=== PATIENT | female | born 1935 | race Caucasian/White ===

== ENCOUNTER 2017-02-15 14:02 | Inpatient (IN) | payer OTHER, MEDICAID ==
[~2017-02-15] VITALS: Ht 162.6 cm; Wt 53.1 kg
[~2017-02-15 14:02] MED LIST: CLONIDINE HCL0.2 MG PO; FELODIPINE5 M1 PO; HYDRALAZINE HYD50 MG PO; LAC PO; LASIX40 MG PO; LEVAQUIN250 MG PO; LEVOTHYROXIN0.075 M2 PO; LOTENSIN40 MG PO; METOPROLOL SUCC50 M2 PO; PROVENTIL0.09 MG/A1 INH
--- NOTE | 2017-02-15 14:29 | NUR ---
PT BIB [facility] FOR MECHANICAL FALL AT HOME, PT REPORTS COMING INSIDE HOME FROM OUTSIDE AND MISSING A STEP WHEN ENTERING. NO TKO. PT C/O R HIP PAIN NO OBVIOUS DEFORMITY NOTED IT TO R HAND ESTABLISHED MEDIA SERVICES SPECIALIST TO ED 20G PATENT. MSE COMPLETED BY DR WHITESIDE.
--- NOTE | 2017-02-15 14:33 | NUR ---
LAB AT BEDSIDE.
[2017-02-15 14:50] LABS: BASOPHIL % 0.3 % (0-2); PLATELET COUNT 298 x10^3mcL (130-400); RED CELL DISTRIBUTION WIDTH 14.1 % (11.5-14.5)
--- NOTE | 2017-02-15 14:51 | NUR ---
PTS PANTS CUT OK PER PT IN ORDER TO HAVE XRAYS DONE. PT MEDICATED DUE TO PAIN 04/25. PT IN NO DISTRESS WILL CONTINUE TO MONITOR
[2017-02-15 14:56] LABS: CALCIUM 8.6 mg/dL (8.5-10.1); CARBON DIOXIDE 20.7 mmol/L (21-32); CHLORIDE SERUM 106 mmol/L (98-107); CREATININE SERUM 1.7 mg/dL (0.6-1.0); GLUCOSE SERUM 118 mg/dL (74-106); POTASSIUM SERUM 4.1 mmol/L (3.5-5.1); SODIUM SERUM 138 mmol/L (136-145)
--- NOTE | 2017-02-15 15:00 | NUR ---
PT TO XRAY VIA [facility]
[2017-02-15 15:09] LABS: ALKALINE PHOSPHATASE 66 U/L (46-116); ALT/SGPT 26 U/L (14-59); AST/SGOT 29 U/L (15-37); BILIRUBIN TOTAL 0.2 mg/dL (0.20-1.00); TOTAL PROTEIN, SERUM 6.7 g/dL (6.4-8.2)
[2017-02-15 15:17] LABS: ALBUMIN 3.3 g/dL (3.4-5.0)
--- NOTE | 2017-02-15 16:04 | NUR ---
pt with urge to void, bed neal provided. family at bedside
--- NOTE | 2017-02-15 16:28 | NUR ---
PT TO CT VIA [facility]
[2017-02-15 16:32] LABS: MAGNESIUM 1.7 mg/dL (1.8-2.4); PHOSPHOROUS 4.2 mg/dL (2.5-4.9)
--- NOTE | 2017-02-15 16:34 | NUR ---
REPORT GIVEN TO ROSS RODRIGUEZ RESUMING CARE OF PT
[2017-02-15 16:37] LABS: T3 TOTAL 0.74 ng/mL
[2017-02-15 16:41] LABS: CHOLESTEROL/HDL RATIO 3.2
[2017-02-15 16:42] LABS: FREE T4 1.08 ng/dL (0.76-1.46); FREE THYROXINE INDEX 3.3 ug/dL (1.4-4.5); T4(THYROXINE) 8.4 ug/dL (4.7-13.3)
--- NOTE | 2017-02-15 17:00 | NUR ---
PT TRANSPORTED TO TELE FLOOR VIA GURNEY BY KEEGAN RODRIGUEZ AND EMT ON PORTABLE CM NO DISTRESS. ROSS RODRIGUEZ RESUMING CARE OF PT
--- NOTE | 2017-02-15 17:20 | NUR ---
RECEIVED PT FROM ED VIA [facility], CAME IN DUE TO S/P FALL AT HOME. AAOX4. NO SOB NOTED. DENIES CHEST PAIN, NSR ON THE MONITOR. DENIES ABDOMINAL DISCOMFORT. W/ RLE SHORTENING. C/O 10/10 RIGHT HIP PAIN WORSE ON MOVEMENT. SIDE RAILS UPX2. CALL LIGHT ON REACH. ENDORSED
[2017-02-15 17:23] VITALS: BP 183/79
[2017-02-15 17:30] VITALS: Ht 162.6 cm; Wt 53.1 kg
--- NOTE | 2017-02-15 18:30 | NUR ---
PT IS CURRENTLY LAYING IN BED. GIVEN 1MG DILAUDID IVP PRN FOR PAIN 05/26. FAMILY AT BEDSIDE. HUMBERTO LIGHT WITHIN REACH. BED IN LOWEST POSITION. ENCOURAGED TO CALL FOR ASSISTANCE WHEN NEEDED. WILL CONTINUE TO MONITOR
[2017-02-15 19:40] VITALS: BP 149/62
--- NOTE | 2017-02-15 19:40 | NUR ---
PT RESTING IN BED. ALERT AND AWAKE. VERBAL WITH CLEAR SPEECH. AOX4. NO S/S OF RESPIRATORY DISTRESS NOTED. LUNGS CLEAR BILATERALLY, DIMINISHED TO BASES. ABD SOFT AND FLAT. BOWEL SOUNDS ACTIVE. IV TO LEFT HAND PATENT AND INTACT. IV INFUSING WELL. NO S/S OF INFECTION NOTED. SKIN WARM AND DRY. BUCKS TRACTION IN PLACE TO RLE WITH 5 LBS. NO EDEMA NOTED. PULSES PALPABLE. DENIES ANY PAIN AT THIS TIME. NO S/S OF DISTRESS NOTED. NO FACIAL GRIMACING NOTED. SIDE RAILS UP. CALL LIGHT WITHIN REACH. WILL CONTINUE TO MONITOR.
[2017-02-15 22:23] VITALS: BP 170/70
--- NOTE | 2017-02-16 00:13 | NUR ---
PT RESTING IN BED WITH EYES CLOSED. BREATHING EQUAL AND UNLABORED. NO S/S OF RESPIRATORY DISTRESS NOTED. IV PATENT AND INFUSING WELL. NO S/S OF INFECTION NOTED. BUCKS TRACTION REMAINS IN PLACE TO RLE. NO S/S OF DISTRESS OR DISCOMFORT NOTED. RESTING WITH RELAXED FACIAL FEATURES. CALL LIGHT WITHIN REACH. WILL CONTINUE TO MONITOR.
--- NOTE | 2017-02-16 01:15 | NUR ---
PAGEGATED DR. BUTTS REGARDING PT'S LOW MAG LEVEL 1.7. AWAITING NEW ORDERS.
[2017-02-16 02:08] LABS: UA SPECIFIC GRAVITY 1.025 (1.005-1.035); microscopic required? YES; urine erythrocyte 1+ (NEGATIVE)
[2017-02-16 06:06] VITALS: BP 103/55
--- NOTE | 2017-02-16 06:35 | NUR ---
PT SLEPT WELL THROUGH THE NIGHT. EASILY AROUSED WHEN NAME CALLED. ALERT AND AWAKE. BREATHING EQUAL AND UNLABORED. RECEIVED ROUTINE MEDICATIONS AND SWALLOWED WITHOUT DIFFICULY. IV PATENT AND INTACT. IV ROCEPHIN INFUSING WELL. PT C/O PAIN ONLY WITH MOVEMENT. REFUSES ANY PAIN MEDICATION AT THIS TIME. NO S/S OF PAIN NOTED. BUCKS TRACTIONS REMAINS IN PLACE TO RLE. NO FACIAL GRIMACING NOTED. RESTING COMFORTABLY WITH RELAXED FACIAL FEATURES. CALL LIGHT WITHIN REACH. WILL CONTINUE TO MONITOR.
[2017-02-16 06:38] LABS: BASOPHIL % 0.4 % (0-2); PLATELET COUNT 274 x10^3mcL (130-400)
[2017-02-16 06:52] LABS: CALCIUM 8.6 mg/dL (8.5-10.1); CARBON DIOXIDE 21.7 mmol/L (21-32); CHLORIDE SERUM 110 mmol/L (98-107); CREATININE SERUM 1.7 mg/dL (0.6-1.0); GLUCOSE SERUM 100 mg/dL (74-106); MAGNESIUM 2.9 mg/dL (1.8-2.4); PHOSPHOROUS 4.4 mg/dL (2.5-4.9); POTASSIUM SERUM 4.7 mmol/L (3.5-5.1); SODIUM SERUM 141 mmol/L (136-145)
--- NOTE | 2017-02-16 07:30 | NUR ---
RECEIVED Pt. AAOX4. RESPIRATIONS EVEN AND UNLABORED. Pt. REPORTED PAIN AT RLE 6/10 AT THIS TIME BUT "PAIN IS STARTING TO GO UP" PER Pt. IVF RUNNING TO IV AT LEFT HAND PATENT AND INTACT. TELE [address] NSR HR 74. RLE ON 5 LB [address]AN'S TRACTION IN PLACE. BED LOW/LOCKED. CALL LIGHT IN REACH.
--- NOTE | 2017-02-16 07:39 | NUR ---
Pt. CONTINUE TO C/O RLE PAIN 8/10 SCALE, DILAUDID GIVEN WILL CONTINUE TO MONITOR.
--- NOTE | 2017-02-16 09:30 | NUR ---
Pt. VERBALIZED SOME RELIEF POST DILAUDID.
--- NOTE | 2017-02-16 10:09 | NUR ---
Pt. C/O RLE PAIN 6/10 SCALE, TRAMADOL GIVEN WILL CONTINUE TO MONITOR.
[2017-02-16 10:22] VITALS: BP 157/68
--- NOTE | 2017-02-16 10:30 | NUR ---
Pt. REPORTED DR. DENNISON EXPLAINED OPEN TREATMENT OF RIGHT HIP FRACTURE AND WITNESSED Pt. SIGN CONSENT.
--- NOTE | 2017-02-16 12:00 | NUR ---
Pt. VERBALIZED SOME RELIEF POST TRAMADOL.
[2017-02-16 13:00] VITALS: BP 187/76
--- NOTE | 2017-02-16 13:11 | NUR ---
Pt. C/O RLE PAIN 8/10 SCALE, DILAUDID IVP GIVEN WILL CONTINUE TO MONITOR.
--- NOTE | 2017-02-16 14:30 | NUR ---
Pt. C/O PAIN AT LEFT HAND IV SITE, SWELLING AND REDNESS NOTED. NEW IV LINE STARTED AT RIGHT FOREARM 22 G WITH GOOD BLOOD RETURN AND TOLERATED WELL. RESUMED NS 100 ML/HR.
--- NOTE | 2017-02-16 15:00 | NUR ---
Pt. EYES CLOSED APPEARS ASLEEP, NO SIGNS OF PAIN/DISCOMFORT AT THIS TIME.
--- NOTE | 2017-02-16 16:23 | NUR ---
Pt. POST USING BEDPAN C/O RLE AND BACK PAIN 8/10 SCALE, DILAUDID IVP GIVEN WILL CONTINUE TO MONITOR.
--- NOTE | 2017-02-16 18:00 | NUR ---
Pt. BP AT 185/77 MAP 144 HR 81, Pt. ASYMPTOMATIC, DENIES HEADACHE OR ANY PAIN/DISCOMFORT AT THIS TIME. DR. PITT NOTIFIED AWAITING ORDERS.
[2017-02-16 18:25] VITALS: BP 185/77
--- NOTE | 2017-02-16 18:47 | NUR ---
IV RATE CHANGED TO 40 ML/HR.
--- NOTE | 2017-02-16 19:00 | NUR ---
Pt. AAOX4. RESPIRATIONS EVEN AND UNLABORED. DENIES PAIN/DISCOMFORT AT THIS TIME. NO DISTRESS NOTED. IVF RUNNING TO IV AT RIGHT FOREARM PATENT AND INTACT. TELE IN PLACE. RLE WITH PAGAN'S TRACTION [address] BED LOW/LOCKED. CALL LIGHT IN REACH.
--- NOTE | 2017-02-16 20:11 | NUR ---
AAO X 4. SPEECH CLEAR AND APPROPRIATE. BREATHING EVEN AND UNLABORED ON ROOM AIR. LUNG SOUNDS CLEAR. SINUS RHYTHM ON TELE. IVF OF NS AT 40ML/HR. BUCKS TRACTION 5LBS TO RIGHT LEG, CAPILLARY REFILL < 3SECS.
[2017-02-16 21:22] VITALS: BP 178/80
[2017-02-16 23:30] VITALS: BP 171/81
--- NOTE | 2017-02-16 23:36 | NUR ---
bp 171/81, pr 87. paged dr. keith
--- NOTE | 2017-02-17 00:02 | NUR ---
DR. PAUL AWARE OF ELEVATED BP.
[2017-02-17 05:07] VITALS: BP 140/60
--- NOTE | 2017-02-17 05:21 | NUR ---
NURSING CO-SIGN THE DOCUMENTATION ENTERED BY THE STUDENT NURSE HAS BEEN REVIEWED. REVIEWED/CO-SIGNED BY: Corey Silver DOCUMENTATION DONE BY: AARTI VILLAREAL
--- NOTE | 2017-02-17 06:51 | NUR ---
Resting comfortably with eyes closed. No complaints of pain.Breaths are even and unlabored. call light within reach. Needs anticipated and met. Will continue to monitor.
--- NOTE | 2017-02-17 07:22 | NUR ---
endorsed to nurse banks. breathing even and unlabored.
--- NOTE | 2017-02-17 07:28 | NUR ---
RECEIVED Pt. AAOX4. RESPIRATIONS EVEN AND UNLABORED. DENIES PAIN/DISCOMFORT AT THIS TIME. NO DISTRESS NOTED. IVF RUNNING TO IV AT RIGHT FOREARM PATENT AND INTACT. TELE IN PLACE NSR HR 68. PAGAN'S TRACTION TO RLE. RLE WITH BRISK CAP REFILL NOTED. BED LOW/LOCKED. CALL LIGHT IN REACH. WILL CONTINUE TO MONITOR.
--- NOTE | 2017-02-17 08:30 | NUR ---
MADE ROUNDS WITH DR. PADILLA AND MEDICINE TEAM, SCHEDULED SURGERY TOMMORROW AND Pt. AGREED WITH PLAN OF CARE.
--- NOTE | 2017-02-17 08:41 | NUR ---
Pt. C/O RLE PAIN 8/10 SCALE PAIN, DILAUDID IVP GIVEN WILL CONTINUE TO MONITOR.
[2017-02-17 09:06] LABS: CARBON DIOXIDE 21.1 mmol/L (21-32); CHLORIDE SERUM 107 mmol/L (98-107); CREATININE SERUM 1.6 mg/dL (0.6-1.0); GLUCOSE SERUM 107 mg/dL (74-106); POTASSIUM SERUM 4.5 mmol/L (3.5-5.1); SODIUM SERUM 136 mmol/L (136-145)
[2017-02-17 09:42] VITALS: BP 134/56
--- NOTE | 2017-02-17 10:18 | NUR ---
Pt. APPEARS TO BE SLEEPING, NO SIGNS OF PAIN/DISCOMFORT AT THIS TIME.
[2017-02-17 13:18] VITALS: BP 149/60
--- NOTE | 2017-02-17 14:20 | NUR ---
Pt. JUST FINISHED USING BEDPAN AND WAS CLEANED. Pt. STILL C/O RLE PAIN 04/25 POST ULTRAM. DILAUDID IVP GIVEN. WILL CONTINUE TO MONITOR.
[2017-02-17 14:57] VITALS: BP 138/59
--- NOTE | 2017-02-17 15:22 | NUR ---
RECHECKED BP 138/59 HR 71, PER DR. PITT HOLD X 1 CLONIDINE ORDER.
--- NOTE | 2017-02-17 16:20 | NUR ---
Pt. VERBALIZED RELIEF POST DILAUDID.
[2017-02-17 18:28] VITALS: BP 160/68
--- NOTE | 2017-02-17 19:24 | NUR ---
Pt. AAOX4. RESPIRATIONS EVEN AND UNLABORED MEDICATED WITH DILAUDID IVP FOR RLE PAIN. NO DISTRESS AT THIS TIME. TELE IN PLACE. IVF RUNNING TO IV AT RIGHT FOREARM PATENT AND INTACT. RLE ON 5LB PAGAN'S TRACTION BRISK CAP REFILL NOTED, WIGGLES RIGHT TOES. BED LOW/LOCKED. CALL LIGHT IN REACH.
[2017-02-17 21:41] VITALS: BP 126/78; BP 145/63
--- NOTE | 2017-02-17 22:19 | NUR ---
PT IS RESTING WITH EYES CLOSED AND C/O PAIN IN HER HIP OF 6/10. WILL MEDICATE PRN PER EMR.
--- NOTE | 2017-02-18 01:20 | NUR ---
PT RESTING AT THIS TIME IN NO ACUTE DISTRESS. RR EVEN AND UNLABORED. IV PATENT AND INFUSING WELL WITH NO S/S OF INFILTRATION. CALL LIGHT WITHIN REACH, BED IN LOW POSITION. WILL CONTINUE TO MONITOR.
--- NOTE | 2017-02-18 02:26 | NUR ---
EYES ARE CLOSED AND SNORING. PT IS RELAXED AND CONFORTABLE. NO C/O PAIN. CALL LIGHT WITHIN REACH. WILL CONTINUE TO MONITOR.
[2017-02-18 05:33] VITALS: BP 126/52
[2017-02-18 07:13] LABS: BASOPHIL % 0.4 % (0-2); PLATELET COUNT 241 x10^3mcL (130-400); RED CELL DISTRIBUTION WIDTH 13.8 % (11.5-14.5)
[2017-02-18 07:34] LABS: ALBUMIN 2.4 g/dL (3.4-5.0); ALKALINE PHOSPHATASE 59 U/L (46-116); ALT/SGPT 17 U/L (14-59); AST/SGOT 22 U/L (15-37); BILIRUBIN TOTAL 0.2 mg/dL (0.20-1.00); CALCIUM 8.2 mg/dL (8.5-10.1); CARBON DIOXIDE 19.5 mmol/L (21-32); CHLORIDE SERUM 106 mmol/L (98-107); CREATININE SERUM 1.7 mg/dL (0.6-1.0); GLUCOSE SERUM 96 mg/dL (74-106); POTASSIUM SERUM 4.3 mmol/L (3.5-5.1); SODIUM SERUM 135 mmol/L (136-145); TOTAL PROTEIN, SERUM 5.6 g/dL (6.4-8.2)
--- NOTE | 2017-02-18 08:00 | NUR ---
RECEIVED PT IN BED ALERT AND ORIENTED X4. TELE #23, NSR. BREATHING EVEN AND UNLABORED ON RA, NO SOB. DENIES ABD PAIN OR N/V/D. VOIDS FREELY. USES BEDPAN. GENERALIZED WEAKNESS. RLE WITH [address] TRACTION IN [address]. PT COMPLAINING OF PAIN TO R HIP RATED 10/10. DILAUDID 1MG IVP GIVEN. NO EDEMA NOTED. INSTRUCTED TO USE CALL LIGHT WHEN IN NEED OF ANY ASSISTANCE.
[2017-02-18 09:18] VITALS: BP 148/61
--- NOTE | 2017-02-18 12:00 | NUR ---
PT BROUGHT DOWN TO OR VIA [facility].
[2017-02-18 16:04] VITALS: BP 137/67
--- NOTE | 2017-02-18 16:04 | NUR ---
PT BACK FROM OR S/P R HIP ORIF. VITAL SIGNS STABLE. INCISION TO R HIP WITH DRESSING CDI. PT DENIES PAIN. ALERT AND ORIENTED TO PERSON AND DATE ONLY. REORIENTED TO PLACE AND SITUATION. ABDUCTOR PILLOW IN PLACE. PEDAL PULSES PALPABLE. PT DENIES NUMBNESS OR TINGLING TO BLE. SHULTZ CATHETER DRAINING TO CLOUDY LIGHT YELLOW URINE. INSTRUCTED TO USE CALL LIGHT WHEN IN NEED OF ANY ASSISTANCE.
[2017-02-18 18:15] VITALS: BP 142/59
--- NOTE | 2017-02-18 18:16 | NUR ---
PT COMPLAINING OF PAIN TO R HIP RATED 10/10. DILAUDID 1MG IVP GIVEN.
--- NOTE | 2017-02-18 19:53 | NUR ---
REC'D PT FROM DAY SHIFT NURSE. FAMILY AT BEDSIDE. AAOX2. ORIENTED TO SELF AND PLACE ONLY. REORIENTED TO TIME AND SITUATION. FOLLOWS COMMANDS, FORGETFUL. REMINDED PT SHE HAD SX. PT STATED "I DON'T HAVE PAPERS FOR SURGERY." ALSO SOMEWHAT AGITATED. PT REPORTS MILD PAIN TO LEG. WHEN ASKED WHICH LEG, PT STATED "YOU SHOULD KNOW WHERE I GOT THE SURGERY." FAMILY REPORTS HER BEING "FEISTY" IS NOT USUAL FOR HER. MED SURG PT. DENIES CP, DIZZINESS, OR PALPITATIONS. NO EDEMA NOTED. NO RESP DISTRESS OR SOB. BREATHING EVEN/UNLABORED ON RA. SHULTZ DRAINING CLEAR LIGHT YELLOW URINE TO GRAVITY. BANDED FOR BLADDER TRAINING. TO D/C TOMORROW @ 0900.. GENERALIZED WEAKNESS WITH LIMITED ROM R HIP. INCISION TO R HIP. SMALL AMOUNT OF SANGUINOUS DRAINAGE ON DRESSING. ABDUCTOR PILLOW IN PLACE. CALL LIGHT WITHIN REACH, BED AT LOWEST POSITION, BED ALARM ON. WILL CONTINUE TO MONITOR.
--- NOTE | 2017-02-18 21:37 | NUR ---
PT C/O R HIP PAIN 05/26. DILAUDID GIVEN PER ORDER. WILL MONITOR FOR RELIEF.
[2017-02-18 22:07] VITALS: BP 119/47
--- NOTE | 2017-02-19 00:11 | NUR ---
2350 UNCLAMPED SHULTZ TO LET URINE DRAIN, CLEAR LIGHT YELLOW 0010 RECLAMPED SHULTZ PT RESTING IN BED WITH EYES CLOSED. SNORING. WILL CONTINUE TO MONITOR.
--- NOTE | 2017-02-19 01:32 | NUR ---
PT RESTING IN BED WITH EYES CLOSED. NO SIGNS OF DISTRESS NOTED. BREATHING EVEN/UNLABORED ON RA. LAYING SUPINE. ABDUCTOR PILLOW IN PLACE. CALL LIGHT WITHIN REACH, BED AT LOWEST POSITION, BED ALARM ON. WILL CONTINUE TO MONITOR.
--- NOTE | 2017-02-19 03:48 | NUR ---
UNCLAMPED SHULTZ. PT AWAKE IN BED. CONFUSED. SOME UNINTELLIGIBLE SPEECH. DID NOT KNOW WHERE SHE WAS. STATED "DECEMBER BROUGHT ME HERE." REORIENTED TO PLACE AND SITUATION. STATES SHE HAS PAIN TO HER LEG. WILL GIVE TRAMADOL PER ORDER. WILL MONITOR FOR RELIEF.
--- NOTE | 2017-02-19 04:23 | NUR ---
SHULTZ RECLAMPED. PT RESTING IN BED WITH EYES CLOSED. NO S/SX OF PAIN NOTED. WILL CONTINUE TO MONITOR.
--- NOTE | 2017-02-19 06:00 | NUR ---
PT AWAKE. CONFUSED, CALM. ORIENTED TO SELF ONLY. DID NOT KNOW HOW SHE GOT TO THE HOSPITAL. REORIENTED TO PLACE, TIME, AND SITUATION. SHULTZ CARE COMPLETED. REPORTS MILD PAIN TO R LEG. DRESSING TO R HIP IN PLACE, NO ADDITIONAL DRAINAGE FROM LAST NIGHT. ABDUCTOR PILLOW IN PLACE. TEMP 101. COOLING MEASURES INITIATED- MOST BLANKETS REMOVED, AC TURNED ON, COLD COMPRESS APPLIED. BP 104/44, MAP 72, HR 70. APRESOLINE HELD. BLADDER TRAINING ENFORCED THROUGHOUT THE NIGHT. SHULTZ TO BE REMOVED TODAY. CALL LIGHT WITHIN REACH, BED AT LOWEST POSITION, BED ALARM ON. WILL ENDORSE TO DAY SHIFT NURSE.
--- NOTE | 2017-02-19 06:14 | NUR ---
PT AWAKE. CONFUSED, CALM. ORIENTED TO SELF ONLY. DID NOT KNOW HOW SHE GOT TO THE HOSPITAL. REORIENTED TO PLACE, TIME, AND SITUATION. SHULTZ CARE COMPLETED. REPORTS MILD PAIN TO R LEG. DRESSING TO R HIP IN PLACE, NO ADDITIONAL DRAINAGE FROM LAST NIGHT. ABDUCTOR PILLOW IN PLACE. TEMP 101. COOLING MEASURES INITIATED- MOST BLANKETS REMOVED, AC TURNED ON, COLD COMPRESS APPLIED. BP 111/42, MAP 65, HR 68. APRESOLINE HELD. BLADDER TRAINING ENFORCED THROUGHOUT THE NIGHT. SHULTZ TO BE REMOVED TODAY. CALL LIGHT WITHIN REACH, BED AT LOWEST POSITION, BED ALARM ON. WILL ENDORSE TO DAY SHIFT NURSE.
[2017-02-19 06:16] VITALS: BP 111/42
[2017-02-19 06:30] LABS: BASOPHIL % 0.1 % (0-2); PLATELET COUNT 211 x10^3mcL (130-400); RED CELL DISTRIBUTION WIDTH 13.8 % (11.5-14.5)
[2017-02-19 06:51] LABS: CALCIUM 7.8 mg/dL (8.5-10.1); CARBON DIOXIDE 19.9 mmol/L (21-32); CHLORIDE SERUM 105 mmol/L (98-107); GLUCOSE SERUM 118 mg/dL (74-106); MAGNESIUM 1.8 mg/dL (1.8-2.4); POTASSIUM SERUM 4.2 mmol/L (3.5-5.1); SODIUM SERUM 137 mmol/L (136-145)
--- NOTE | 2017-02-19 09:00 | NUR ---
PT ON BED, AWAKE, ALERT, AND ORIENTED. HAS NO COMPLAINT OF PAIN, SOB, OR DIZZINESS. RESPONDS WELL TO QUESTION AND ANSWER. PT ON ABDUCTOR PILLOW, S/P R ORIF ON 02/18/17. DERSSING IS CDI. CLEAR CLAUDIA LUNG FIELD, SYMMETRICAL CHEST EXPANSION AND UNLABORED. ACTIVE BOWEL SOUNDS NOTED.. SIDE RAILS UP, CALL LIGHT WITHIN REACH, WILL CONTINUE TO MONITOR
--- NOTE | 2017-02-19 10:00 | NUR ---
F/C D/C PER DR'S ORDER
[2017-02-19 10:15] VITALS: BP 106/42
--- NOTE | 2017-02-19 12:00 | NUR ---
PT UP WITH PHYSICAL THERAPY. PRN MEDICATION GOVEN PRIOR TO THERAPY
--- NOTE | 2017-02-19 14:58 | NUR ---
PT ON BED ASLEEP. WILL CONTINUE TO MONITOR
--- NOTE | 2017-02-19 16:00 | NUR ---
BLADDER SCAN WAS DONE AT BEDSIDE WITH A ESTIMATED AMOUNT OF 240-260 CC.
[2017-02-19 17:30] VITALS: BP 129/48
--- NOTE | 2017-02-19 17:40 | NUR ---
PT ON BED, AWAKE, ALERT, AND ORIENTED. PT WAS ABLE TO URINATE WITH A BED JORDAN.
--- NOTE | 2017-02-19 19:40 | NUR ---
REC'D PT FROM DAY SHIFT NURSE. PT AAOX3, FORGETFUL. REORIENTED TO SITUATION. PT RESTING IN BED. C/O MILD PAIN TO R HIP. BREATHING EVEN/UNLABORED ON RA. MED SURG PT. DENIES DIZZINESS, PALPITATIONS, OR CP. PT IS S/P ORIF R HIP POD 1. DRESSING TO R HIP WITH SMALL AMOUNT OF DRY SANGUINOUS DRAINAGE. LIMITED ROM RLE. ABDUCTOR PILLOW IN PLACE. PT USING TRAPESE. FELT NEED TO VOID. PUT ON BEDPAN AND VOIDED 200 ML. CALL LIGHT WITHIN REACH, BED AT LOWEST POSITION, BED ALARM ON. WILL CONTINUE TO MONITOR.
[2017-02-19 21:33] VITALS: BP 125/50
--- NOTE | 2017-02-20 02:30 | NUR ---
PT AWAKE. AAOX3 WITH PERIODS OF CONFUSION. PULLED IV AND WRISTBANDS OFF. HAD AN EPISODE OF INCONTINENCE. ASSITED TO BEDPAN. WILL RESTART NEW IV.
[2017-02-20 05:35] VITALS: BP 142/48
[2017-02-20 06:11] LABS: BASOPHIL % 0.2 % (0-2); PLATELET COUNT 210 x10^3mcL (130-400); RED CELL DISTRIBUTION WIDTH 13.9 % (11.5-14.5)
--- NOTE | 2017-02-20 06:21 | NUR ---
PT AAOX3, FORGETFUL AT TIME. C/O R HIP PAIN 03/25. TRAMADOL GIVEN PER ORDER. NO SIGNS OF DISTRESS NOTED. BREATHING EVEN/UNLABORED ON RA. NO OTHER COMPLAINTS AT THIS TIME. DRESSING TO R HIP HAS NEW MOD SANGUINEOUS DRAINAGE. ABDUCTOR PILLOW IN PLACE. USING TRAPEZE TO HELP POSITION TO BEDBAN. PT ABLE TO VOID FREELY AFTER SHULTZ REMOVAL THIS MORNING. NO SIGNIFICANT CHANGES DURING SHIFT. CALL LIGHT WITHIN REACH, BED AT LOWEST POSITION, BED ALARM ON. WILL CONTINUE TO MONITOR.
[2017-02-20 06:38] LABS: CALCIUM 8.1 mg/dL (8.5-10.1); CARBON DIOXIDE 19.1 mmol/L (21-32); CHLORIDE SERUM 107 mmol/L (98-107); CREATININE SERUM 1.9 mg/dL (0.6-1.0); GLUCOSE SERUM 104 mg/dL (74-106); MAGNESIUM 1.9 mg/dL (1.8-2.4); PHOSPHOROUS 3.7 mg/dL (2.5-4.9); POTASSIUM SERUM 3.9 mmol/L (3.5-5.1); SODIUM SERUM 138 mmol/L (136-145)
--- NOTE | 2017-02-20 07:38 | NUR ---
RECEIVED PT LAYING IN BED ASLEEP. NO APPARENT SIGNS OF ACUTE DISTRESS NOTED AT THIS TIME. IV SITE APPEARS PATENT AND IS INFUSING WELL. BED IN THE LOWEST POSITION CALL LIGHT WITHIN REACH. WILL CONTINUE TO MONITOR
--- NOTE | 2017-02-20 08:45 | NUR ---
AM ROUNDS DONE BY DR. PADILLA. PLAN OF CARE IS TO TRANSFER PT TO A REHAB [facility] BY TOMORROW. PT APPEARED RECEPTIVE AND AGREES TO PLAN OF CARE. CALL LIGHT WITHIN REACH. WILL CONTINUE TO MONITOR
[2017-02-20 09:33] VITALS: BP 139/51
--- NOTE | 2017-02-20 11:06 | NUR ---
PT RESTING IN BED ASLEEP. NO APPARENT SIGNS OF ACUTE DISTRESS NOTED AT THIS TIME. IV INFUSING WELL. CALL LIGHT WITHIN REACH. WILL CONTINUE TO MONITOR
--- NOTE | 2017-02-20 14:42 | NUR ---
PT IS LAYING IN BED ASLEEP. NO APPARENT SIGNS OF ACUTE DISTRESS NOTED AT THIS TIME. CALL LIGHT WITHIN REACH. WILL CONTINUE TO MONITOR
[2017-02-20 17:27] VITALS: BP 123/45
--- NOTE | 2017-02-20 19:40 | NUR ---
A&0 X 4. RESTING IN BED WITH EYES CLOSED, AWAKENS EASILY TO VERBAL STIMULI. LUNG SOUNDS CLEAR AND UNLABORED, ON RA. DENIES ALL PAIN AT THIS TIME. RADIAL AND PEDAL PULSES PALPABLE, NO EDEMA NOTED. BOWEL SOUNDS ACTIVE X 4 QUADRANTS. DRESSING TO RIGHT HIP WITH SCANT AMOUNT OF SANGINOUS DRAINAGE. ABDUCTOR PILLOW IS PRESENT. IVF INFUSING NS @ 40 ML/HR TO LEFT FA, NO REDNESS OR SWELLING. BED IN LOW POSITION, CALL LIGHT IN REACH. INSTRUCTED TO CALL FOR ASSISTANCE.
[2017-02-20 21:59] VITALS: BP 137/49
--- NOTE | 2017-02-21 01:00 | NUR ---
RESTING IN BED WITH EYES CLOSED. AWAKENS EASILY TO VERBAL STIMULI. BREATHING EVEN AND UNLABORED, ON RA. NO ACUTE DISTRESS NOTED. IV PATENT AND INFUSING. BED IN LOW POSITION, CALL LIGHT IN REACH. WILL CONTINUE TO MONITOR.
--- NOTE | 2017-02-21 07:00 | NUR ---
RESTING IN BED WITH EYES CLOSED, AWAKENS EASILY TO VERBAL STIMULI. BREATHING EVEN AND UNLABORED. NO ACUTE DISTRESS NOTED. IV PATENT AND INFUSING. NO ACUTE CHANGES DURING SHIFT. BED IN LOW POSITION, CALL LIGHT IN REACH. WILL ENDORSE TO ONCOMING RN.
--- NOTE | 2017-02-21 07:33 | NUR ---
RECEIVED PT AWAKE IN BED. REMOVED FRACTURE JORDAN AND CHANGED GOWN. DENIES PAIN AT THIS TIME. IV SITE APPEARS PATENT AND INFUSING WELL. CALL LIGHT WITHIN REACH. ABDUCTOR IN PLACE. ENCOURAGED TO CALL FOR ASSISTANCE WHEN NEEDED. WILL CONTINUE TO MONITOR
[2017-02-21 09:50] VITALS: BP 109/45
--- NOTE | 2017-02-21 13:51 | NUR ---
PT IS CURRETNLY IN BED ASLEEP. NO APPARENT SIGNS OF ACUTE DISTRESS NOTED AT THIS TIME. APPEARS TO HAVE EATEN A SMALL PORTION OF LUNCH. WILL OFFER PT MORE HYDRATION AND FOOD INTAKE WHEN SHE AWAKENS. IV INFUSING WELL. CALL LIGHT WITHIN REACH. WILL CONTINUE TO MONITOR
[2017-02-21 15:18] VITALS: BP 109/45
[2017-02-21] MEDS ORDERED: VITC PO (15:43)
[2017-02-21] MEDS ORDERED: HEP5I SC (15:44)
[2017-02-21] MEDS ORDERED: THERA TABS1 TAB PO (15:44)
[2017-02-21] MEDS ORDERED: ROX5 PO (15:46)
[2017-02-21] MEDS ORDERED: ATI1 PO (15:46)
--- NOTE | 2017-02-21 16:43 | NUR ---
PHYSICAL THERAPY DAILY NOTES CO-SIGN All documentation done by the Steward/Stewardess [employer] Class for 02/21/17 has been reviewed. I agree with the documentation. Reviewed/Co-Signed by: Saloni Ríos PT Documentation Done by:DANIELLA ELLIOTT SPTA/DEANDRE MON INSPECTOR PRECISION POC REVIEWED W/ INSPECTOR PRECISION, SPTA; PROGRESSING W/ GAIT ENDURANCE, FUNC MOBILITY; WILL BENEFIT W/ P.T. AFTER ACUTE STAY.
--- NOTE | 2017-02-21 16:45 | NUR ---
PT WAS PICKED UP BY [facility] AND TRANSFERRED TO REHAB FACILITY. FAMILY AT BEDSIDE. PT WAS SALINE LOCKED. ABDUCTOR PILLOW IN PLACE. NO APPARENT SIGNS OF ACUTE DISTRESS NOTED AT TIME OF DEPARTURE
== END 2017-02-21 16:47 | DRG 469 ==
LOC: ED 14:02 → MU 15:34 → DU 15:34 → MU 02-18 09:37
PROVIDERS: Emergency Medicine; Neuromusculoskeletal Medicine, Sports Medicine; ADMIT Family Medicine
PROC: 0SRR0JA Replacement of Right Hip Joint, Femoral Surface with Synthetic Substitute, Uncemented, Open Approach (ICD-10-PCS; principal; 2017-02-18 12:00)
DX: S72.011A Unspecified intracapsular fracture of right femur, initial encounter for closed fracture (principal); N17.0 Acute kidney failure with tubular necrosis; N18.4 Chronic kidney disease, stage 4 (severe); N39.0 Urinary tract infection, site not specified; I12.9 Hypertensive chronic kidney disease with stage 1 through stage 4 chronic kidney disease, or unspecified chronic kidney disease; S09.90XA Unspecified injury of head, initial encounter; E83.42 Hypomagnesemia; E03.9 Hypothyroidism, unspecified; F41.8 Other specified anxiety disorders; D64.9 Anemia, unspecified; M19.90 Unspecified osteoarthritis, unspecified site; W17.89XA Other fall from one level to another, initial encounter; Y93.89 Activity, other specified; Y92.89 Other specified places as the place of occurrence of the external cause; Z68.20 Body mass index [BMI] 20.0-20.9, adult; Z86.73 Personal history of transient ischemic attack (TIA), and cerebral infarction without residual deficits
CPT/HCPCS: 83880; 84439; 94150; 97110-GP; 97116-GP; 97530-GP; C1776; J0690; J0696; J1170; J1644; J2250; J2270; J2405; J3010; J3475; J3490; J7030; J7120; Q0092

== ENCOUNTER 2019-02-22 00:13 | Inpatient (IN) | payer OTHER, MEDICAID ==
[~2019-02-22] VITALS: Ht 162.6 cm; Wt 51.7 kg
[~2019-02-22 00:13] MED LIST changes: +ATI1 PO; +HEP5I SC; +HYDRALAZINE HY100 MG; -HYDRALAZINE HYD50 MG PO; +ROX5 PO; +THERA TABS1 TAB PO; +VITC PO
[2019-02-22 00:24] VITALS: Ht 162.6 cm; Wt 51.7 kg
--- NOTE | 2019-02-22 00:25 | NUR ---
DR KAMINSKI AT BEDSIDE FOR MSE
--- NOTE | 2019-02-22 00:25 | NUR ---
PT BIB ACL [facility] WITH C/O RIGHT SIDED HEAD PAIN AND ALOC. PER MEDIC THE DAUGHTER STATED THAT "PATIENT WAS NOT ACTING HERSELF AND MUMBLING WHEN TALKING." MEDIC REPORTED THAT DAUGHTER STATED PT HAD FALLEN 2X YESTERDAY WHEN AMBULATING TO RESTROOM, FALLS WERE UNWITNESSED, PER MEDIC THE FAMILY DID NOT GIVE A GOOD HISTORY OF PT. PER MEDIC PT HAS HISTORY OF CVAS, HTN AMD HYPOTHRYOIDISM. PER KATHE, "I THINK MY MOM TOOK SOMETHING OR TOO MANY MEDS." PT IS AAOX2, UNABLE TO RECALL THE DAY OR LOCATION, AROUSABLE TO TOUCH, SLOW TO SPEAK, ABLE TO FOLLOW COMMANDS, PUPILS ARE IRRGEULAR. PT REPORTED SHE HAS HX OF CATERACT SURGERY BILATERALLY. PT DENIES ANY PAIN AT THIS TIME, PT DOES NOT RECALL A FALL EQUAL OUTSIDE PROPERTY AGENT AND FULL ROM, +PMSC, NO DISTRESS NOTED, RESP E/U. PT GOWNED AND PLACED ON FULL CM, NSR, BED IN LOWEST POSITION AND CALL GR WITHIN REACH. WILL CONT TO MONITOR.
--- NOTE | 2019-02-22 00:49 | NUR ---
[employer] SUPERVISOR AT BEDSIDE FOR BLOOD DRAW
--- NOTE | 2019-02-22 00:55 | NUR ---
ASSISTED PT IN USE OF BEDPAN. PT TOLERATED WELL, NO SIGNS OF DISTRESS.
--- NOTE | 2019-02-22 01:00 | NUR ---
PT TAKEN OFF THE FLOOR VIA GURNEY TO CT BY SKIN CARE SPECIALIST. NO SIGNS OF DISTRESS NOTED.
[2019-02-22 01:04] LABS: PLATELET COUNT 324 x10^3mcL (130-400)
[2019-02-22 01:05] LABS: BASOPHIL % 2.1 % (0-2); RED CELL DISTRIBUTION WIDTH 15.6 % (11.5-14.5)
[2019-02-22 01:13] LABS: CALCIUM 9.7 mg/dL (8.5-10.1); CARBON DIOXIDE 21.2 mmol/L (21-32); CHLORIDE SERUM 107 mmol/L (98-107); CREATININE SERUM 2.2 mg/dL (0.6-1.0); GLUCOSE SERUM 92 mg/dL (74-106); POTASSIUM SERUM 5.3 mmol/L (3.5-5.1); SODIUM SERUM 137 mmol/L (136-145)
--- NOTE | 2019-02-22 01:14 | NUR ---
PT RETURNED TO ER FLOOR VIA GURNERY WITHOUT INCIDENT.
--- NOTE | 2019-02-22 01:15 | NUR ---
XRAY AT BEDSIDE.
[2019-02-22 01:18] LABS: ALBUMIN 3.5 g/dL (3.4-5.0); ALKALINE PHOSPHATASE 76 U/L (46-116); ALT/SGPT 22 U/L (14-59); AST/SGOT 21 U/L (15-37); BILIRUBIN TOTAL 0.25 mg/dL (0.20-1.00); TOTAL PROTEIN, SERUM 6.7 g/dL (6.4-8.2)
[2019-02-22 01:26] LABS: FREE T4 1.1 ng/dL (0.76-1.46)
[2019-02-22 01:38] LABS: UA SPECIFIC GRAVITY 1.015 (1.005-1.035); microscopic required? YES; urine erythrocyte NEGATIVE (NEGATIVE)
[2019-02-22 02:05] LABS: AMPHETAMINE QUAL UR NONE DETECTED (See below)
--- NOTE | 2019-02-22 02:12 | NUR ---
PT IS AAOX2, UNABLE TO RECALL LOCATION OR DAY, RE-ORIENTED PATIENT. PT IN NO DISTRESS, DENIES ANY PAIN, RESP E/U. PT STATED "IM TIRED." PT IN POSITION OF COMFORT LAYING IN BED WITH EYES CLOSED, PT AROUSABLE TO VOICE. DUAGHTER AT THE BEDSIDE. PT ON FULL CM, NSR, VSS. WILL CONT TO MONITOR. BED IN LOWEST POSITON FOR SAFETY AND CALL GR WITHIN REACH.
--- NOTE | 2019-02-22 03:10 | NUR ---
PT RESTING WITH EYES CLOSED, AROUSABLE TO VOICE, ABLE TO RESPOND TO COMMANDS AND VERBALIZE NEEDS. PT IS AAOX3, NO SIGNS OF DISTRESS NOTED, RESP E/U. PT IN FULL CM, VSS, NSR, WILL CONT TO MONITOR.
[2019-02-22] MEDS ORDERED: LEVOTHYROXINE0.1 M2 PO (03:46)
[2019-02-22] MEDS ORDERED: EDARBI80 MG PO (03:46)
[2019-02-22] MEDS ORDERED: FELODIPINE2.5 MG PO (03:47)
[2019-02-22] MEDS ORDERED: CARAFATE1 GM PO (03:48)
[2019-02-22] MEDS ORDERED: CLONIDINE HCL0.2 MG PO (03:48)
[2019-02-22] MEDS ORDERED: EPZICOM1 TAB (03:49)
[2019-02-22] MEDS ORDERED: APAP/HYDROCODON1 T13 PO (03:49)
--- NOTE | 2019-02-22 04:05 | NUR ---
ASSISTED PT TO THE BEDPAN. PT TOLERATED WELL NO SIGNS OF DISTRESS, RESP E/U
--- NOTE | 2019-02-22 04:22 | NUR ---
GAVE REPORT TO KARINA RODRIGUEZ ON TELE WHO WILL RESUME FURTHER CARE OF THIS PATIENT.
[2019-02-22 04:24] LABS: CHOLESTEROL/HDL RATIO 2.9; PHOSPHOROUS 5.5 mg/dL (2.5-4.9)
[2019-02-22 04:55] LABS: BASOPHIL % 0.7 % (0-2); PLATELET COUNT 321 x10^3mcL (130-400)
[2019-02-22 04:59] LABS: RED CELL DISTRIBUTION WIDTH 15.6 % (11.5-14.5)
[2019-02-22 05:01] VITALS: BP 193/82
[2019-02-22 05:02] LABS: CALCIUM 9.1 mg/dL (8.5-10.1); CARBON DIOXIDE 19.8 mmol/L (21-32); CHLORIDE SERUM 111 mmol/L (98-107); CREATININE SERUM 1.9 mg/dL (0.6-1.0); GLUCOSE SERUM 96 mg/dL (74-106); POTASSIUM SERUM 4.8 mmol/L (3.5-5.1); SODIUM SERUM 139 mmol/L (136-145)
--- NOTE | 2019-02-22 05:24 | NUR ---
ADMITTED AN 84 YEARS OLD FEMALE CAME IN VIA GURNEY ACCOMPANIED BY ER STAFF AND DAUGHTER DEMETRA WITH C/O HEADPAIN AND ALOC AFTER PATIENT FELL AT HOME YESTERDAY PER DAUGHTER.AWAKE, ALERT WITH PERIODS OF CONFUSION AND FORGETFUL. KEPT IN COMFORT AND ORIENTED TO ROOM AND DEVICES. TELE# 29 NSR WITH E;EVATED T WAVE ON MONITOR. IV TO LAC HEPLOCKED. WITH ADMISSION ORDER AND TO CARRY OUY. WILL CONTINUE TO MONITOR. BED ALARM ON AND TO LOWEST POSITION.
--- NOTE | 2019-02-22 06:58 | NUR ---
ADMISSION OEDERS CARRIED OUT, STARTED NS TO LAC IONFUSING AR 75ML/HR. WILL ENDORSE CONTINOUS CARE TO AM SHIFT.
--- NOTE | 2019-02-22 07:05 | NUR ---
RECEIVED BEDSIDE REPORT FROM HEAT READER NURSE AT THIS TIME. PATIENT RESTING COMFORTABLY IN BED. NO APPARENT DISTRESS OR DISCOMFORT NOTED. BREATHING EVEN AND UNLABORED. NO RESPIRATORY DISTRESS OR DISCOMFORT NOTED. IV PATENT AND INTACT. PATIENT INSTRUCTED TO KEEP ARM STRAIGHT BECAUSE IV IN LEFT AC. PATIENT VERBALIZES UNDERSTANDING. ALL QUESTIONS AND CONCERNS ADDRESSED. ALL NEEDS ATTENDED TO. WILL CONTINUE TO MONITOR
--- NOTE | 2019-02-22 09:18 | NUR ---
MORNING MEDICATION ADMINISTERED. PATIENT TOLERATED WELL. NO ADVERSE EFFECTS NOTED. ALL NEEDS ATTENDED TO. WILL CONTINUE TO MONITOR
[2019-02-22 09:24] VITALS: BP 158/77
--- NOTE | 2019-02-22 12:50 | NUR ---
PATIENT SITTING UP IN BED EATING LUNCH WITH ASSISTANCE FROM FAMILY MEMBER AT THIS TIME. PATIENT TOLERATING DIET WELL. NO APPARENT DISTRESS OR DISCOMFORT NOTED. ALL NEEDS ATTENDED TO. WILL CONTINUE TO MONITOR
[2019-02-22 12:51] VITALS: BP 118/64
[2019-02-22 17:02] VITALS: BP 154/68
--- NOTE | 2019-02-22 17:55 | NUR ---
PATIENT SITTING UP IN BED EATING DINNER AT THIS TIME. PATIENT TOLERATING DIET WELL. NO APPARENT DISTRESS OR DISCOMFORT NOTED. ALL NEEDS ATTENDED TO. WILL CONTINUE TO MONITOR
--- NOTE | 2019-02-22 18:51 | NUR ---
PATIENT RESTING COMFORTABLY IN BED AT THIS TIME. NO APPARENT DISTRESS OR DISCOMFORT NOTED. IV PATENT AND INTACT. ALL QUESTIONS AND CONCERNS ADDRESSED. ALL NEEDS ATTENDED TO. SAFETY PRECAUTIONS MAINTAINED. WILL ENDORSE ALL CARE TO CENTRAL SUPPLY TECHNICIAN SUPERVISOR NURSE
--- NOTE | 2019-02-22 19:28 | NUR ---
RECEIVED PATIENT IN BED SLEEPING EASILY AROUSABLE WITH NO SIGN OF ACUTE DISTRESS. BREATHING EASY AND NONLABOR SATTING AT 98% RA. TELE# 29 NSR ON MONITOR WITH ELEVATED T WAVE ON MONITOR.ABDOMEN SOFT AND NONTENDER WITH ACTIVE BS. IV TO LAC INTACT AND INFUSING WELL. WILL CONTINUE TO MONITOR. CALL LIGHT WITHIN REACH, BED TO LOWEST POSITION AND BED ALARM ON.
--- NOTE | 2019-02-22 20:42 | NUR ---
C/O HEADACHE TYLENOL 650MG PO GIVEN PRESCRIBED. WILL CONTINUE TO MONITOR.
[2019-02-22 21:27] VITALS: BP 138/54
--- NOTE | 2019-02-23 00:44 | NUR ---
APPEAR SLEEPING AT THIS TIME WITH EYES CLOSED, NO SIGN OF DISTRESS NOTED.
--- NOTE | 2019-02-23 05:13 | NUR ---
SLEPT FAIRLY CHECKED AT INTERVALS FOR NEEDS AND SAFETY. ALL NEEDS ATTENDED.
[2019-02-23 05:22] VITALS: BP 150/70
[2019-02-23 06:28] LABS: BASOPHIL % 0.4 % (0-2); PLATELET COUNT 304 x10^3mcL (130-400)
[2019-02-23 06:34] LABS: RED CELL DISTRIBUTION WIDTH 15.6 % (11.5-14.5)
[2019-02-23 06:45] LABS: CALCIUM 9.3 mg/dL (8.5-10.1); CARBON DIOXIDE 17.8 mmol/L (21-32); CHLORIDE SERUM 114 mmol/L (98-107); CREATININE SERUM 1.7 mg/dL (0.6-1.0); GLUCOSE SERUM 84 mg/dL (74-106); POTASSIUM SERUM 5.4 mmol/L (3.5-5.1); SODIUM SERUM 144 mmol/L (136-145)
--- NOTE | 2019-02-23 08:00 | NUR ---
SITTING UP IN BED FINISHED BREAKFAST. POOR APPETITE. SAYS SHE DOESNT USUALY EAT BREAKFAST. BREATHING FREELY ON RA. TELE # 29 SR W DEPRESSED T WAVE. CONTACT ISOLATION FOR HX MDROO URINE. NS INFUSING 75 CC HOUR. DENIES PAIN AT THIS TIME. ASSIST W ABRAHAM. CALL LIGHT WITHIN REACH.
--- NOTE | 2019-02-23 11:04 | NUR ---
FLOOR TECH AWARE OF K 5.4.
[2019-02-23 13:41] VITALS: BP 123/57
--- NOTE | 2019-02-23 15:43 | NUR ---
PT REMAINS CONFUSED. MORE FAMILY MEMBERS CAME TO VISIT.
--- NOTE | 2019-02-23 15:45 | NUR ---
TABITHA IN TO SPEAK TO PT ABOUT GOING TO A SNF FOR AWHILE TO GET STRONGER. PT IN AGREEMENT. TABITHA WILL CALL DTR.
[2019-02-23 16:47] VITALS: BP 152/64
--- NOTE | 2019-02-23 17:58 | NUR ---
ALERT AND ORIENTED. SITTING UP IN BED WATCHING TV. FINISHED DINNER. 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 BRP W SUPERVISIION AND MIN ASSIST TO BR. CONTINUES ON NS 75 CC HOUR AND ROCEPHIN. VSS.CALL LIGHT WITHIN REACH.
--- NOTE | 2019-02-23 19:40 | NUR ---
RECEIVED REPORT FROM AM NURSE. PT IN BED WATCHING TV. AAOX3 CONFUSED WITH TIME. SHE STATES SHE DOESN'T KNOW WHAT DAY IT IS. TELE 29, DENIES CP/PRESSURE AT THIS TIME. PALPABLE PULSES TO BLE AND BUE. NO EDEMA NOTED. BREATHING EVEN AND UNLABORED, BREATH SOUNDS CTA ON RA. NO SIGNS OF DISTRESS NOTED. ABD SOFT AND ROUND, ACTIVE BOWEL SOUNDS X4 QUAD. VOIDS FREELY BRP WITH ASSIST. GENERALIZED WEAKNESS, AMBULATORY WITH WALKER. SKIN IS INTACT. IV TO LAC INFUSING WELL. BED IN LOWEST POSITION, BED ALARM ON, CALL LIGHT WITHING REACH, WILL CONTINUE TO MONITOR.
[2019-02-23 21:09] VITALS: BP 166/61
--- NOTE | 2019-02-23 21:30 | NUR ---
ASSISTED PT TO RESTROOM, BRP WITH ASSIST, PT WITH MILD UNSTEADY GAIT, BACK TO BED WITHOUT ANY INCIDENT.
--- NOTE | 2019-02-24 05:19 | NUR ---
PT SLEPT AT INTERVALS THROUGHOUT NIGHT, ON TELE NORMAL SINUS, DENIES CP/PRESSURE. BREATHING EVEN AND UNLABORED, NO SIGNS OF ACUTE DISTRESS NOTED. BED IN LOWEST POSITION, BED ALARM ON. ALL NEEDS ASSESSED AND ATTENDED. WILL ENDORSE CARE TO AM NURSE.
[2019-02-24 05:34] VITALS: BP 164/66
[2019-02-24 06:24] LABS: BASOPHIL % 0.4 % (0-2); PLATELET COUNT 294 x10^3mcL (130-400)
[2019-02-24 06:31] LABS: CALCIUM 8.6 mg/dL (8.5-10.1); CARBON DIOXIDE 19.7 mmol/L (21-32); CHLORIDE SERUM 115 mmol/L (98-107); CREATININE SERUM 1.6 mg/dL (0.6-1.0); GLUCOSE SERUM 89 mg/dL (74-106); SODIUM SERUM 145 mmol/L (136-145)
--- NOTE | 2019-02-24 07:10 | NUR ---
RECEIVED PT FROM GRISELDA RN. PT AA/OX4. NO S/S OF ACUTE DISTRESS. DENIES PAIN. NO SOB ON ROOM AIR. NON-PRODUCTIVE COUGH NOTED. REPORTS MILD DISCOMFORT UPON DEEP INSPIRATION TO LEFT CHEST, REPRODUCIBLE. NON-RADIATING, SHORT IN DURATION. NSR ON TELE. HR 64. CALM/COOPERATIVE. FACE SYMMETRICAL. SPEECH CLEAR. MILD WEAKNESS NOTED TO RUE. ACTIVE LIMITED ROM NOTED TO LUE/RLE. AMBULATORY WITH ASSIST. FALL PRECAUTIONS I NPLACE. INSTRUCTED TO USE CALL LIGHT TO CALL FOR ASSISTANCE BEFORE AMBULATING. VERBALIZED UNDERSTANDING. CONTACT PRECAUTIONS IN PLACE. IV WNL TO LAC, NO REDNESS, NO SWELLING, NO INFILTRATION. BED IN LOW POSITION. CALL LIGHT WITHIN REACH. WILL CONTINUE TO MONITOR.
--- NOTE | 2019-02-24 09:12 | NUR ---
PT COMPLAINT OF BARRERA TO POSTERIOR HEAD, ACHING, ACUTE, RELIEVED BY REST, GIVEN TYLENOL, SEE MAR. BP ELEVATED, 182/72, GIVEN PRN PO BP MED, SEE MAR. NO DIZZINESS. NO N/V. NO CHEST PAIN. AA/OX4. SPEECH CLEAR. FACE SYMMETRICAL. CALM/COOPERATIVE. WILL CONTINUE TO MONITOR CLOSELY. BED IN LOW POSITION. CALL LIGHT WITHIN REACH.
[2019-02-24 09:18] VITALS: BP 182/72
[2019-02-24 09:45] VITALS: BP 163/68
--- NOTE | 2019-02-24 12:00 | NUR ---
PT LAYING IN BED. AA/OX4. NO S/S OF ACUTE DISTRESS. DENIES PAIN. NO SOB ON ROOM AIR. CALM/COOPERATIVE. IV WNL, IV FLUIDS FLOWING. NO N/V. NO BARRERA. NO DIZZINESS. BED IN LOW POSITION. CALL LIGHT WITHIN REACH. FALL PRECAUTIONS IN PLACE. WILL CONTINUE TO MONITOR.
[2019-02-24 14:07] VITALS: BP 136/58
[2019-02-24 17:02] VITALS: BP 152/59
--- NOTE | 2019-02-24 18:47 | NUR ---
PT LAYING IN BED. GIVEN TYLENOL AND ICE PACK FOR BARRERA, SEE MAR. REPORTS BARRERA PAIN DECREASED, REPORTS TOLERABLE AT THIS TIME. NO DIZZINESS. NO N/V. NO SOB ON ROOM AIR. NO CHEST PAIN. CALM/COOPERATIVE. IV WNL TO LAC, IV FLUIDS FLOWING. BED IN LOW POSITION. CALL LIGHT WITHIN REACH. FALL PRECAUTIONS IN PLACE. WILL ENDORSE TO ONCOMING SHIFT.
--- NOTE | 2019-02-24 19:10 | NUR ---
RECEIVED PT FROM PREVIOUS SHIFT NURSE. PT AOX4. DENIES BARRERA/DIZZINESS AT THIS TIME. TELE #29, NSR, HR 64. DENIES CP/PRESSURE. DENIES SOB/DIFFICULTY BREATHING, ON RA. IV TO LAC, INTACT AND PATENT. BED IN LOWEST POSITION. CALL LIGHT WITHIN REACH. WILL CONTINUE TO MONITOR.
[2019-02-24 21:02] VITALS: BP 106/67
--- NOTE | 2019-02-24 23:00 | NUR ---
PT REQUESTING SLEEPING AID. DR. NARAYANAN MADE AWARE. AWAITING FURTHER ORDERS.
--- NOTE | 2019-02-25 03:10 | NUR ---
PT RESTING IN BED. RR EVEN AND UNLABORED. IN NO ACUTE DISTRESS. CALL LIGHT WITHIN REACH. BED IN LOWEST POSITOIN. WILL CONTINUE TO MONITOR.
[2019-02-25 05:41] VITALS: BP 197/78
[2019-02-25 06:29] LABS: BASOPHIL % 0.3 % (0-2); PLATELET COUNT 344 x10^3mcL (130-400)
[2019-02-25 06:35] LABS: CARBON DIOXIDE 17.7 mmol/L (21-32); CHLORIDE SERUM 114 mmol/L (98-107); CREATININE SERUM 1.5 mg/dL (0.6-1.0); GLUCOSE SERUM 95 mg/dL (74-106); POTASSIUM SERUM 5.3 mmol/L (3.5-5.1); SODIUM SERUM 143 mmol/L (136-145)
[2019-02-25 06:39] VITALS: BP 179/67
[2019-02-25 06:56] LABS: RED CELL DISTRIBUTION WIDTH 15.3 % (11.5-14.5)
--- NOTE | 2019-02-25 08:00 | NUR ---
ROBERTA TIS VERY ANXIOUS ABOUT LEAVING FO SNF TODAY. SHE STATED THE PLACE SHE IS GOING TO AND STILL NO INDICATION ARRANGEMENTS HAD BEEN MADE OR THAT THE DISTANCE LEARNING PROGRAM COORDINATOR HAD SPOKEN TO ANYONE YET. WILL NEED TO CALL TO VERIFY. PATIENT HAS BEEN RESTING AND DOES NOT APPEAR IN ANY ACUTE DISTRESS AT THIS TIME. SHE TOLERATED DIET AND IS ALERT AND ORIENTED TIMES FOUR. IV INTACT AND PATIENT HAS CLEAR BUT DIMINISHED BREATH SOUNDS AND BOWEL SOUNDS ACTIVE. PULSES PALPABLE TO ALL EXTREMITES. ENCOURAGED TO DEEP BREATH OFTEN AND TO REQUEST ASSISTANCE WHEN NEEDSING TO GET UP TO THE RESTROOM DUE TO FREQUENT FALLS AT HOME. APTIENT AHS VITALS AT THIS TIME AT 98.2, 56, 18, 179/67, 99% ON ROOM AIR AT 630AM. DAYANNA LRECHECK THE BP AND ENCOURAGE PATIENT TO RELAX AND BE PATIENT WITH STAFF ON THE DISCHARGE PLAN. SHE IS TO GO TO A SNF FOR CONTINUED ANTIBIOTIC THERAPY AND SHE HAS KLEBIELLA PNEUMONE IN THE URINE. SHE IS IN ISOLATION FOR MDRO OF THE URINE. SHE HAS BEEN ON ROCEPHIN AND SO FAR NO ADVERSE REACTION NOTED. LABS ARE WITH POTASSIUM ELEVATED AT 5.3, THE BUN AT 23.0, AND THE CREATININE AT 1.5. SHE HAS CHLORIDE AT 114. SHE HAS NOTED CHRONIC KIDNEY DISEASE AND HAD BEEN NORMAL SINUS ON THE MONITOR. PATIENT HAS HISTORY OF CVA, HYPOTHYROIDISM. AND HIP ON THE RIGHT ARTHROPLASTY IN THE PAST. WILL CONTINUE TO MONITOR AND UPDATE THE PATIENT INDICATED.
[2019-02-25] MEDS ORDERED: ROC1I IV (08:37)
[2019-02-25 09:43] VITALS: BP 144/63
--- NOTE | 2019-02-25 09:52 | NUR ---
BLOOD PRESSURE AT 144/73 AT HIS TIME. WILL CONTINUE TO MONITOR.
--- NOTE | 2019-02-25 11:32 | NUR ---
ORDER FOR ARRANGEMENT FOR TRANSFER TO SNF NOTED. PATIENT DOES NOT HAVE A PLACE SET UP YET.
--- NOTE | 2019-02-25 11:43 | NUR ---
NOTED PATIENT HAS A DISCHARGE PLAN AND THE ISSUE IS TRANSPORT THE COMPANY WHO WAS TO DO THE TRANSPORT THEY CAN NOT GO TO [facility].
[2019-02-25 13:16] VITALS: BP 116/68
--- NOTE | 2019-02-25 15:23 | NUR ---
PHYSICAL THERAPY DAILY NOTES CO-SIGN All documentation done by the Instructor Product Inspection for 02/25/19 has been reviewed. I agree with the documentation. Reviewed/Co-Signed by: Renetta Tineo PT Documentation Done by:YESENIA CISNEROS PTA FOR 02/24/19
--- NOTE | 2019-02-25 16:28 | NUR ---
GAVE REPORT TO STAFF FOR THE PATIENT TRANSER TO [facility] AD SPOKE WITH Martín MORELOS AT THIS FACILITY. APTIENT IS TO BE ARRIVING SOME TIME AFTER 500PM. SO FAR THOUGH THE FAMILY HAS NOT GOTTEN HERE TO TRANSFER. WILL ASK THE PATIETN AGAIN IF THERE IS A DELAY EXPECTED BY HER DAUGHTER.
--- NOTE | 2019-02-25 17:01 | NUR ---
CALLED TO ADVISE THE SNF THE PATIET JUST LEFT TO GO TO [facility]. LATER THAN THE EXPECTED 300PM PREVIOUS TIME.
--- NOTE | 2019-02-26 07:22 | NUR ---
PHYSICAL THERAPY DAILY NOTES CO-SIGN All documentation done by the Dry Color Tester for 02/26/19 has been reviewed. I agree with the documentation. Reviewed/Co-Signed by: Renetta Tineo PT Documentation Done by:YESENIA CISNEROS PTA FOR 02/25/19
== END 2019-02-25 16:39 | DRG 689 ==
LOC: ED 00:13 → DU 03:22
PROVIDERS: Emergency Medicine; Internal Medicine; ADMIT Family Medicine
DX: N39.0 Urinary tract infection, site not specified (principal); G93.41 Metabolic encephalopathy; N17.0 Acute kidney failure with tubular necrosis; N18.4 Chronic kidney disease, stage 4 (severe); Z68.1 Body mass index [BMI] 19.9 or less, adult; E87.5 Hyperkalemia; E86.0 Dehydration; B96.1 Klebsiella pneumoniae [K. pneumoniae] as the cause of diseases classified elsewhere; I12.9 Hypertensive chronic kidney disease with stage 1 through stage 4 chronic kidney disease, or unspecified chronic kidney disease; E03.9 Hypothyroidism, unspecified; M19.90 Unspecified osteoarthritis, unspecified site; W18.39XA Other fall on same level, initial encounter; Y93.89 Activity, other specified; Y92.89 Other specified places as the place of occurrence of the external cause
CPT/HCPCS: 83880; 84439; 97110-GP; 97116-GP; 97530-GP; G0378; J0696; J7030